=== PATIENT | male | born 1985 | race Caucasian/White ===

== ENCOUNTER 2018-07-29 02:27 | Emergency (ER) | payer OTHER ==
[2018-07-29 02:28] VITALS: BP 153/82
--- NOTE | 2018-07-29 02:34 | ER Report ---
History and Physical Time Seen By MD: 02:28 Hx. of Stated Complaint: INTERMEDIATE CLEARANCE. HPI/ROS CHIEF COMPLAINT: Long-Term clearance HISTORY OF PRESENT ILLNESS: 32-year-old male brought in by police for [facility] clearance. Patient appears grossly alcohol intoxicated with slurred speech. Patient voices no complaints. There are no overt signs of injury or trauma. Patient denies significant past medical history REVIEW OF SYSTEMS: Respiratory: No cough, no dyspnea. Cardiovascular: No chest pain, no palpitations. Gastrointestinal: No vomiting, no abdominal pain. Musculoskeletal: No back pain. Allergies: Coded Allergies: No Known Drug Allergies (Unverified , 11/07/15) Home Meds No Active Prescriptions or Reported Meds Reviewed Nurses Notes: Yes Old Medical Records Reviewed: Yes Hx Smoking: Yes Smoking Status: Current: Every Day Smoker Constitutional Vital Sign - Last 24 Hours 07/29/18 02:28 Temp 97.5 Pulse 112 Resp 16 B/P (MAP) 153/82 Pulse Ox 92 O2 Delivery Room Air Physical Exam General Appearance: The patient is alert, has no immediate need for airway protection and no current signs of toxicity. Palpation of the head and neck reveals no tenderness or trauma, vital signs stable, afebrile, pulse ox normal HEENT: Pupils equal and round no injection. TMs normal, oropharynx without dental trauma Respiratory: Chest is non tender, lungs are clear to auscultation. No chest wall tenderness Cardiac: regular rate and rhythm Gastrointestinal: Abdomen is soft and non tender, no masses, bowel sounds normal. Musculoskeletal: Neck: Neck is supple and non tender. Extremities have full range of motion and are non tender. No evidence of trauma Skin: No rashes or lesions. DIFFERENTIAL DIAGNOSIS: After history and physical exam differential diagnosis was considered for alcohol intoxication, polysubstance abuse, [facility] clearance Medical Decision Making ED Course/Re-evaluation ED Course Patient was admitted to an examination room. H&P was done. The differential diagnoses was considered. On clinical examination. Patient voices no complaints, patient has no findings on clinical examination. Patient's medically cleared for [facility] admission. Decision to Disposition Date: July 29, 2018 Decision to Disposition Time: 02:33 Depart Departure Latest Vital Signs Vital Signs Date Time Temp Pulse Resp B/P (MAP) Pulse Ox O2 Delivery O2 Flow Rate FiO2 07/29/18 02:28 97.5 112 16 153/82 92 Room Air Impression: Primary Impression: Medical clearance for incarceration Additional Impression: Alcohol intoxication Condition: Improved Disposition: [facility] TO INTERMEDIATE/CORRECTIONAL F New Scripts No Active Prescriptions or Reported Meds Patient Instructions: Alcohol Intoxication (ED) Additional Instructions: Medical cleared for [facility] admission Problem Qualifiers Additional Impression: Alcohol intoxication Complication of substance-induced condition: uncomplicated Qualified Codes: F10.920 - Alcohol use, unspecified with intoxication, uncomplicated JORDYN ALMAZAN DO July 29, 2018 02:34
== END 2018-07-29 02:40 ==
LOC: ER 02:30
DX: F10.920 Alcohol use, unspecified with intoxication, uncomplicated (principal)
CPT/HCPCS: 99281